=== PATIENT | male | born 1945 | race Caucasian/White ===

== ENCOUNTER 2018-01-23 13:26 | Emergency (ER) | payer BC, MEDICARE ==
[2018-01-23] MEDS ORDERED: ASPIRIN 81 MG TABLET, CHEWABLE PO ONE (13:57)
--- NOTE | 2018-01-23 13:59 | ER Document Report ---
ED Medical Screen (RME) - General Chief Complaint: Irregular Pulse Stated Complaint: SHORTNESS OF BREATH Time Seen by Provider: 01/23/18 13:57 Notes: 72 years old male presents today with shortness of breath on exertion since yesterday. He is visiting from [place]. Denies any chest pain denies any other constitutional symptoms. He has a history of A. fib but not on any AV renata blockers. Denies any chest pain. Denies any left arm numbness tingling sensation nausea vomiting. Past medical history of A. fib, diabetes. Examination is benign except bradycardia of 40 bpm. TRAVEL OUTSIDE OF THE [place] IN LAST 30 DAYS: No - Related Data Allergies/Adverse Reactions: No Known Allergies Allergy (Unverified 01/23/18 13:52) Past Medical History Renal/ Medical History: Denies: Hx Peritoneal Dialysis
--- NOTE | 2018-01-23 14:31 | ER Document Report ---
ED Cardiac <CHANTEL ZELAYA - Last Filed: 01/23/18 16:36> - General Mode of Arrival: Ambulatory Information source: Patient TRAVEL OUTSIDE OF THE [place] IN LAST 30 DAYS: No <GERRY DAVIS - Last Filed: 01/23/18 17:55> - General Chief Complaint: Irregular Pulse Stated Complaint: SHORTNESS OF BREATH Time Seen by Provider: 01/23/18 13:57 Notes: 72 y.o male with Afib for which he takes Eliquis, HTN, DM and sleep apnea presents to the ED with irregular heart rate of onset yesterday. He states that yesterday he he had an onset of dyspnea on exertion and lightheadedness when he stood up but did not check his pulse. Pt states that his sx were continuing today and so he checked his pulse and measured it to be very low. Pt reports that he has just finished Bactrim for a UTI 2 days ago. He denies being on any rate control medications for his Afib. Pt has a PSHx of an operation for a kidney stone, L4-L5 surgery and an L5-S1 surgery. Pt denies any hx of DC. Pt takes Metformin, Eliquis, and uses C-PAP at night. He reports that he used to take hydrochlorothiazide but does not any longer. (GERRY DAVIS) - Related Data Allergies/Adverse Reactions: No Known Allergies Allergy (Unverified 01/23/18 13:52) Past Medical History - General Information source: Patient - Social History Smoking Status: Unknown if Ever Smoked Lives with: Other - visiting from [place] with Family History: Reviewed & Not Pertinent Patient has suicidal ideation: No Patient has homicidal ideation: No Renal/ Medical History: Denies: Hx Peritoneal Dialysis <GERRY DAVIS - Last Filed: 01/23/18 17:55> Review of Systems - Review of Systems Constitutional: No symptoms reported EENT: No symptoms reported Cardiovascular: See HPI, Palpitations, Lightheaded Respiratory: See HPI, Short of breath Gastrointestinal: No symptoms reported Genitourinary: No symptoms reported Male Genitourinary: No symptoms reported Musculoskeletal: No symptoms reported Skin: No symptoms reported Hematologic/Lymphatic: No symptoms reported Neurological/Psychological: No symptoms reported -: Yes All other systems reviewed and negative <GERRY DAVIS - Last Filed: 01/23/18 17:55> Physical Exam <CHANTEL ZELAYA - Last Filed: 01/23/18 16:36> <GERRY DAVIS - Last Filed: 01/23/18 17:55> - Vital signs Vitals: Resp Pulse Ox 12 97 01/23/18 14:26 01/23/18 14:26 - Notes Notes: Physical Exam: General: Alert, appears well. HEENT: Normocephalic. Atraumatic. PERRL. Extraocular movements intact. Oropharynx clear. Neck: Supple. Non-tender. Respiratory: No respiratory distress. Clear and equal breath sounds bilaterally. Cardiovascular: HR 30 regular. BP 175 systolic. No peripheral edema. Abdominal: Normal Inspection. Non-tender. No distension. Normal Bowel Sounds. Back: Non-tender. No deformity or step off. Extremities: Moves all four extremities. Upper extremities: Normal inspection. Normal ROM. Lower extremities: Normal inspection. No edema. Normal ROM. Neurological: Normal cognition. AAOx3. Normal speech. Psychological: Normal affect. Normal Mood. Skin: Warm. Dry. Normal color. (GERRY DAVIS) Course - Laboratory Result Diagrams: 01/23/18 14:33 01/23/18 14:33 - Diagnostic Test Radiology reviewed: Image reviewed, Reports reviewed - Mild cardiomegaly without infiltrates or failure - EKG Interpretation by Vt EKG shows normal: [place], Intervals, ST-T Waves. abnormal: Sinus rhythm, QRS Complexes Rate: Bradycardia - 38 Rhythm: Other - Junctional escape rhythm [place]/QRS: IVCD When compared to previous EKG there are: Previous EKG unavailable - Consults Dr. Aalnis Time consulted: 16:30 Consulted provider: other - Will accept at [facility] for pacemaker insertion <CHANTEL ZELAYA - Last Filed: 01/23/18 16:36> - Laboratory Result Diagrams: 01/23/18 14:33 01/23/18 14:33 <GERRY DAVIS - Last Filed: 01/23/18 17:55> - Vital Signs Vital signs: Temp Pulse Resp BP Pulse Ox 18 132/66 H 98 01/23/18 17:38 01/23/18 17:44 01/23/18 17:44 - Laboratory Laboratory results interpreted by me: 08/01/23/18 01/23/18 14:33 14:33 16:15 RBC 4.14 L Hgb 12.7 L Hct 37.6 L Seg Neutrophils % 78.9 H Chloride 109 H Carbon Dioxide 17 L BUN 29 H Creatinine 1.37 H Est GFR (Non-Af Amer) 51 L Glucose 157 H Ur Leukocyte Esterase TRACE H Critical Care Note - Critical Care Note Total time excluding time spent on procedures (mins): 35 <CHANTEL ZELAYA - Last Filed: 01/23/18 16:36> Discharge <CHANTEL ZELAYA - Last Filed: 01/23/18 16:36> <GERRY DAVIS - Last Filed: 01/23/18 17:55> - Discharge Clinical Impression: Junctional escape rhythm, Bradycardia, Heart block Condition: Fair Disposition: [facility] Scribe Attestation: 01/23/18 15:32 I personally performed the services described in the documentation, reviewed and edited the documentation which was dictated to the scribe in my presence, and it accurately records my words and actions. (CHANTEL ZELAYA) Scribe Documentation - Scribe Written by Blanca:: Blanca Zhu, 01/23/18 1431 acting as scribe for :: Suzy <GERRY DAVIS - Last Filed: 01/23/18 17:55>
[2018-01-23 14:54] LABS: ABSOLUTE BASOPHILS # (AUTO) 0.1 10^3/uL (0.0-0.2); ABSOLUTE EOSINOPHILS # (AUTO) 0.1 10^3/uL (0.0-0.6); ABSOLUTE LYMPHOCYTES (AUTO) 1.4 10^3/uL (0.5-4.7); ABSOLUTE MONOCYTES (AUTO) 0.6 10^3/uL (0.1-1.4); ABSOLUTE NEUT (AUTO) 8.1 10^3/uL (1.7-8.2); BASOPHILS % (AUTO) 0.7 % (0-2); EOSINOPHILS % (AUTO) 0.8 % (0-6); HEMATOCRIT 37.6 % (37.9-51.0); HEMOGLOBIN 12.7 g/dL (13.5-17.0); LYMPHOCYTES % (AUTO) 13.7 % (13-45); MEAN CORPUSCULAR HEMOGLOBIN 30.7 pg (27.0-33.4); MEAN CORPUSCULAR HGB CONC 33.8 g/dL (32.0-36.0); MEAN CORPUSCULAR VOLUME 91 fl (80-97); MONOCYTES % (AUTO) 5.9 % (3-13); PLATELET COUNT 195 10^3/uL (150-450); RED BLOOD COUNT 4.14 10^6/uL (4.35-5.55); SEGMENTED NEUTROPHILS % (AUTO) 78.9 % (42-78); TOTAL CELLS COUNTED % (AUTO) 100 %; WHITE BLOOD COUNT 10.2 10^3/uL (4.0-10.5)
[2018-01-23 15:24] LABS: ALANINE AMINOTRANSFERASE 40 U/L (21-72); ALKALINE PHOSPHATASE 76 U/L (38-126); ANION GAP 17 (5-19); ASPARTATE AMINO TRANSFERASE 31 U/L (17-59); BILIRUBIN,DIRECT 0.3 mg/dL (0.0-0.4); BILIRUBIN,TOTAL 0.6 mg/dL (0.2-1.3); BLOOD UREA NITROGEN 29 mg/dL (7-20); CALCIUM 9.8 mg/dL (8.4-10.2); CARBON DIOXIDE 17 mmol/L (22-30); CHLORIDE 109 mmol/L (98-107); CREATINE KINASE 67 U/L (55-170); GLUCOSE 157 mg/dL (75-110); POTASSIUM 4.6 mmol/L (3.6-5.0); SODIUM 142.9 mmol/L (137-145); TOTAL PROTEIN 6.7 g/dL (6.3-8.2)
--- NOTE | 2018-01-23 15:27 | RADIOLOGY REPORT (SQ) ---
EXAM DESCRIPTION: CHEST SINGLE VIEW COMPLETED DATE/TIME: 01/23/2018 3:06 pm REASON FOR STUDY: Shortness of breath COMPARISON: None. EXAM PARAMETERS: NUMBER OF VIEWS: One view. TECHNIQUE: Single frontal radiographic view of the chest acquired. RADIATION DOSE: NA LIMITATIONS: None. FINDINGS: LUNGS AND PLEURA: No opacities, masses or pneumothorax. No pleural effusion. MEDIASTINUM AND HILAR STRUCTURES: No masses. Contour normal. HEART AND VASCULAR STRUCTURES: Mild cardiomegaly BONES: No acute findings. HARDWARE: None in the chest. OTHER: No other significant finding. IMPRESSION: Mild cardiomegaly. No acute infiltrates TECHNICAL DOCUMENTATION: JOB ID: [id number] [employer]- All Rights Reserved Reading location - IP/workstation name: [email or web address]
[2018-01-23] MEDS ORDERED: NORMAL SALINE 1000 ML 1,000 ML IV ONE (15:29)
[2018-01-23 15:36] LABS: CREATINE KINASE MB 2.22 ng/mL (<4.55); TROPONIN I 0.012 ng/mL
[2018-01-23 16:45] LABS: APPEARANCE,URINE CLEAR; BILIRUBIN,URINE NEGATIVE (NEGATIVE); COLOR,URINE AMBER; GLUCOSE, URINE NEGATIVE (NEGATIVE); KETONES,URINE NEGATIVE (NEGATIVE); LEUKOCYTE ESTERASE,URINE TRACE (NEGATIVE); NITRITE,URINE NEGATIVE (NEGATIVE); PROTEIN,URINE NEGATIVE (NEGATIVE); UROBILINOGEN,URINE NEGATIVE mg/dL (<2.0)
[2018-01-23 17:47] VITALS: BP 132/66
--- NOTE | 2018-01-23 18:44 | EKG REPORT ---
SEVERITY:- ABNORMAL ECG - JUNCTIONAL ESCAPE RHYTHM IVCD, CONSIDER ATYPICAL RBBB : Confirmed by: Arjun Ashraf MD 23-Jan-2018 18:43:11
== END 2018-01-23 17:58 | disposition short-term general hospital (02) ==
LOC: ER 13:26
DX: I45.9 Conduction disorder, unspecified (principal); I48.91 Unspecified atrial fibrillation; Z79.01 Long term (current) use of anticoagulants; I51.7 Cardiomegaly; R00.1 Bradycardia, unspecified; R42 Dizziness and giddiness; R06.02 Shortness of breath; I10 Essential (primary) hypertension; E11.9 Type 2 diabetes mellitus without complications; Z79.84 Long term (current) use of oral hypoglycemic drugs; G47.30 Sleep apnea, unspecified; Z87.440 Personal history of urinary (tract) infections; Z99.89 Dependence on other enabling machines and devices
CPT/HCPCS: 93005; 99291; 96360; 96361; 36415; 82553; 82550; 83735; 85025; 80053; 81001; 84484; 71045; 93010; J7030